=== PATIENT | male | born 1945 | race Caucasian/White ===

== ENCOUNTER → 2019-12-10 | Outpatient (CLI) | payer OTHER ==
--- NOTE | 2019-12-10 08:59 | Diagnostic Imaging Report ---
EXAM: US ABDOMEN COMPLETE DATE: 12/10/2019 8:02 AM INDICATION: Left upper quadrant pain COMPARISON: None FINDINGS: The visualized pancreas appears unremarkable. The liver is normal in size measuring 13.6 cm in length. The hepatic echogenicity is within normal limits. No focal hepatic abnormality is identified. The main portal vein is patent with antegrade flow and diameter of 0.5 cm. The gallbladder is unremarkable. There is no evidence for cholelithiasis, gallbladder wall thickening, or pericholecystic fluid. There is no intra or extrahepatic biliary ductal dilatation. The common bile duct measures 3 mm sonographic Jennings's sign is negative. The kidneys are normal in size measuring 12.6 cm in length on the right and 9.8 cm in length on the left. Cortical thickness and echogenicity are within normal limits. 2 simple cysts are identified arising off the right kidney measuring up to 7.3 cm and 5.5 cm. 2 simple cysts are also identified arising off of left kidney measuring up to 3.2 cm and 2.7 cm. There is no evidence for solid renal mass, hydronephrosis, or shadowing calculi. The visualized portions of the IVC and aorta are within normal limits. There is no ascites visualized. IMPRESSION: Bilateral renal cysts. Otherwise, unremarkable abdominal ultrasound examination. Signed by: Dr. Shai Duckworth MD on 12/10/2019 8:56 AM
== END ==
LOC: US 07:39
PROVIDERS: ATTEND Internal Medicine
DX: R10.12 Left upper quadrant pain (principal)
CPT/HCPCS: 76700